=== PATIENT | male | born 1935 | race Caucasian/White ===

== ENCOUNTER → 2017-11-04 | Outpatient (CLI) | payer OTHER, MEDICARE | LOC: BHFA 08:30 | PROVIDERS: ATTEND Internal Medicine Cardiovascular Disease | DX: R06.02 Shortness of breath (principal); I10 Essential (primary) hypertension ==

== ENCOUNTER 2018-04-13 05:45 | Observation (INO) | payer OTHER, MEDICARE ==
--- NOTE | 2018-03-29 21:08 | GHP ---
[f rep st] PREOP HISTORY AND PHYSICAL DATE OF ADMISSION: 04/13/2018 He will be an a.m. admission for surgery at [facility] on Friday April 13, 2018. PROBLEMS: Left knee arthritis. HISTORY OF PRESENT ILLNESS: The patient is an 83-year-old man admitted for a left total knee arthrop lasty. He has had progressive trouble in his left knee for the past couple of years. He has receive d nonsurgical treatment at [facility]. He received viscosupplementation injections without improveme nt. He had 1 cortisone injection which helped for a few weeks. He had a 2nd injection, which did no t help at all. The knee has been aspirated several times. His pain is on the medial side of the kne e. He has pain going up and down stairs. He has had to give up cycling and hiking because of knee p ain. He is on Coumadin and is unable to take anti-inflammatory medications. He does not have any other total joints. He has recently had a complete cardiac evaluation by Dr. Vandana Patino and was cleared. PAST MEDICAL HISTORY: He is treated for hypertension. He has had a previous TUR for prostate enlarg ement. He has known factor 11 deficiency. He is followed by Dr. Oglesby. He is on chronic anticoag ulation. He also underwent ORIF of the right tibia with intramedullary nail in 1997. CURRENT MEDICATIONS: Amlodipine 10 mg per day for blood pressure. He uses gabapentin for sleep. Lo sartan 50 mg per day for blood pressure. Simvastatin 40 mg per day for cholesterol. Coumadin 5 mg 4 days a week and 2.5 mg 3 days a week. His most recent INR was 2.2. PAST SURGICAL HISTORY: He has had previous lumbar disk surgery. ALLERGIES: Drug allergy: None. Metal allergy: None. Latex allergy: None. SOCIAL HISTORY: The patient is . He is retired. He does not smoke cigarettes, but he occasi onally drinks alcohol. FAMILY HISTORY: Positive for heart disease and hypertension. PHYSICAL EXAMINATION: GENERAL: He is a tall healthy-appearing man. Height 6 feet. Weight 170 poun ds. BMI 23.1. EYES: He has had bilateral cataract surgery with lens implants. MOUTH: He has a co mplete upper denture. CHEST: Clear. HEART: Regular rhythm. No murmurs. EXTREMITIES: Pertinent findings limited to his left knee. He has full knee extension and 100 degrees of flexion. A small e ffusion is present. His ligaments are stable. Mild patellofemoral crepitation with active knee exte nsion. His patella is not tender with compression. He walks with a limp. IMAGING STUDIES: His films show medial compartment degenerative arthritis in the left knee. He has an intramedullary nail in the right. IMPRESSION ON ADMISSION: 1. Left knee medial compartment degenerative arthritis. He is prepared for a left total knee arthro plasty. 2. 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 3. Status post open reduction and internal fixation of the right tibia fracture. 4. Previous lumbar spine disk surgery. 5. Status post transurethral resection of the prostate for prostate enlargement. 6. Treatment for hypertension. PLAN: He will undergo a left total knee arthroplasty. The surgery has been described to him and to his , including the risks, complications, expectations, and recovery time. I have advised him th at 15% of people do not get a satisfactory result with a total knee replacement. He is chronically a nticoagulated for factor 11 deficiency. He will receive bridge therapy with Lovenox for 5 days prior to surgery. I have stressed the importance of postoperative physical therapy. All his questions have been answer ed, and he consents to surgery. /[id number]/MODL
[2018-04-13] MEDS ORDERED: TRANEXAMIC ACID 3,000 MG in NS (SYRINGE) 50 ML IRR ONE (06:00)
[2018-04-13] MEDS ORDERED: POVIDONE-IODINE 20 ML in SODIUM CL IRRIG SOLUTION 500 ML IRR ONE (06:00)
[2018-04-13] MEDS ORDERED: ROPIVACAINE 0.2% 80 MG, EPINEPHrine 0.2 MG, KETOROLAC TROMETHAMINE 30 MG in SYRINGE 0 ML IU ONE (06:00)
[2018-04-13] MEDS ORDERED: TRANEXAMIC ACID 1,000 MG in NS (SYRINGE) 50 ML IV ONE (06:00)
[2018-04-13] MEDS ORDERED: ACETAMINOPHEN 325 MG TAB PO ONE ×2 (06:17→09:32)
[2018-04-13] MEDS ORDERED: FAMOTIDINE 20 MG TAB PO ONE ×2 (06:17→09:32)
[2018-04-13] MEDS ORDERED: GABAPENTIN 300 MG CAP PO ONE (06:17)
[2018-04-13] MEDS ORDERED: DEXAMETHASONE 4 MG/ML VIAL IVP ONE ×2 (06:17→09:32)
[2018-04-13] MEDS ORDERED: ceFAZolin 2 GM/SWFI 2 GM/20 ML SYR IVP ONE ×2 (06:17→09:32)
[2018-04-13] MEDS ORDERED: ONDANSETRON 4 MG/2 ML VIAL IVP ONE (06:17)
[2018-04-13] MEDS ORDERED: LIDOCAINE 1% 2 ML INJ ID PRN (06:18)
[2018-04-13] MEDS ORDERED: LR 1,000 ML IV ONE (06:18)
[2018-04-13] MEDS ORDERED: LIDOCAINE 1% 2 ML INJ ONE (06:22)
[2018-04-13] MEDS ORDERED: VANCOMYCIN 1 GM VIAL ONE (06:32)
[2018-04-13] MEDS ORDERED: ceFAZolin 1 GM/5 ML SYR ONE (06:33)
--- NOTE | 2018-04-13 07:05 | PDHPUP ---
History & Physical Update H&P update statement: This history and physical update is based on an assessment of the patient which was completed after admission or registration (within 24 hours), but prior to the surgery/procedure. H&P update: H&P reviewed & patient examined
--- NOTE | 2018-04-13 07:11 | PDANEPAE ---
ANE Past Medical History - Cardiovascular History Hx Hypertension: Yes Hx Arrhythmias: No Hx Chest Pain: No Hx Coronary Artery / Peripheral Vascular Disease: No Hx CHF / Valvular Disease: No Hx Palpitations: No - Pulmonary History Hx COPD: No Hx Asthma/Reactive Airway Disease: No Hx Recent Upper Respiratory Infection: No Hx Oxygen in Use at Home: No Hx Sleep Apnea: No Sleep Apnea Screening Result - Last Documented: Positive - Neurologic History Hx Cerebrovascular Accident: No Hx Seizures: No Hx Dementia: No - Endocrine History Hx Diabetes: No - Renal History Hx Renal Disorders: Yes Renal History Comment: increased BUN/CREAT - Liver History Hx Hepatic Disorders: No - Neurological & Psychiatric Hx Hx Neurological and Psychiatric Disorders: No - Cancer History Hx Cancer: No - Congenital Disorder History Hx Congenital Disorders: Yes Congenital History Comment: FACTOR X1 DEFICIENCY - GI History Hx Gastrointestinal Disorders: No - Other Health History Other Health History: dentures upper - Chronic Pain History Chronic Pain: Yes (back) - Surgical History Prior Surgeries: none ANE Review of Systems Review of Systems: - Exercise capacity METS (RN): 5 METS ANE Patient History - Allergies Allergies/Adverse Reactions: No Known Allergies Allergy (Verified 03/25/18 12:39) - Home Medications Home Medications: Fluticasone Nasal [Flonase Nasal Cana (RX)] 1 sprays NASAL HS PRN 11/06/13 [ Last Taken Unknown] Vits A,C,E/Lutein/Minerals [Ocuvite Tablet] 2 tab PO DAILY 11/06/13 [Last Taken 11/06/13 07:00] Acetaminophen [Tylenol ES 500 mg (*)] 1,000 mg PO HS 03/23/18 [Last Taken Unknown] Carboxymethylcellulose 1% [Refresh Celluvisc (*)] 1 each OP PRN PRN 03/23/18 [ Last Taken Unknown] Gabapentin [Neurontin 300 MG (*)] 600 mg PO HS 03/23/18 [Last Taken Unknown] Losartan Potassium [Cozaar 50 mg (*)] 50 mg PO DAILY 03/23/18 [Last Taken Unknown] Simvastatin [Zocor] 20 mg PO DAILY 03/23/18 [Last Taken Unknown] Warfarin Sodium [Coumadin 5MG (*)] 5 mg PO SUMOTUSA 03/23/18 [Last Taken Unknown ] Warfarin Sodium [Warfarin Sodium] 2.5 mg PO WETHFR 03/23/18 [Last Taken Unknown] amLODIPine BESYLATE/BENAZEPRIL [Lotrel 5/10 mg Cap (*)] 1 each PO DAILY [Last Taken Unknown] - Smoking Hx Smoking Status: Former smoker - Family Anes Hx Family Hx Anesthesia Complications: none ANE Labs/Vital Signs - Vital Signs Height: 182.88 cm Weight: 83.915 kg ANE Physical Exam - Airway Neck exam: FROM Mallampati Score: Class 2 Mouth exam: normal dental/mouth exam - Pulmonary Pulmonary: no respiratory distress - Cardiovascular Cardiovascular: regular rate and rhythym - ASA Status ASA Status: III ANE Anesthesia Plan Anesthesia Plan: spinal Regional Anesthesia: adductor canal FNB
[2018-04-13 07:17] LABS: INR 1.06 (0.83-1.16)
[2018-04-13] MEDS ORDERED: PROPOFOL/EMULSION 500 MG/50 ML BOTTLE IV ONE (07:25)
[2018-04-13] MEDS ORDERED: LIDOCAINE 2% 100 MG/5 ML SYR ONE (07:27)
[2018-04-13] MEDS ORDERED: ROPIVACAINE HCL 150 MG/30 ML INJ ONE (09:07)
--- NOTE | 2018-04-13 09:14 | POSTOPPROG ---
Post Op Note Date of Operation: 04/13/18 Surgeon: Malcolm Carreno Argon Tester: Nilson Anesthesiologist: Dr. Willam Kenny Anesthesia: IV Sedation, Spinal Post-op Diagnosis: Left knee severe degenerative arthritis Procedure: Left total knee arthroplasty Inf/Abcess present in the surg proc area at time of surgery?: No EBL: 50-100 (Adductor canal block in PACU.)
[2018-04-13] MEDS ORDERED: CARBOXYMETHYLCELLULOSE 1% 0.4 ML DROPERETTE OP PRN (09:28)
[2018-04-13] MEDS ORDERED: FLUTICASONE NASAL 120 SPRAYS/16 GM MDI EACHNARE PRN (09:28)
[2018-04-13] MEDS ORDERED: PROMETHAZINE HCL 25 MG/ML INJ IVP PRN (09:34)
[2018-04-13] MEDS ORDERED: MAGNESIUM HYDROXIDE 30 ML UDCUP PO PRN (09:34)
[2018-04-13] MEDS ORDERED: ONDANSETRON 4 MG/2 ML VIAL IVP PRN (09:34)
[2018-04-13] MEDS ORDERED: POLYETHYLENE GLYCOL 3350 17 GM PKT PO PRN (09:34)
[2018-04-13] MEDS ORDERED: BISACODYL 10 MG SUPP PR PRN (09:34)
[2018-04-13] MEDS ORDERED: NS 500 ML IV PRN (09:34)
[2018-04-13] MEDS ORDERED: oxyCODONE IR 5 MG TAB PO PRN (09:34)
[2018-04-13] MEDS ORDERED: LACTULOSE 20 GM/30 ML UDCUP PO PRN (09:34)
[2018-04-13] MEDS ORDERED: TEMAZEPAM 15 MG CAP PO PRN (09:34)
[2018-04-13] MEDS ORDERED: traMADol 50 MG TAB PO PRN (09:34)
[2018-04-13] MEDS ORDERED: PROMETHAZINE HCL 25 MG SUPPR PR PRN (09:34)
[2018-04-13] MEDS ORDERED: DIPHENOXYLATE/ATROPINE LOMOTIL 1 TAB PO PRN (09:34)
[2018-04-13] MEDS ORDERED: METOCLOPRAMIDE 10 MG/2 ML VIAL IVP PRN (09:34)
[2018-04-13] MEDS ORDERED: ONDANSETRON DISINTEGRATING 4 MG TAB PO PRN (09:34)
[2018-04-13] MEDS ORDERED: CYCLOBENZAPRINE 10 MG TAB PO PRN (09:34)
[2018-04-13] MEDS ORDERED: diphenhydrAMINE 25 MG CAP PO PRN (09:34)
[2018-04-13] MEDS ORDERED: LR 1,000 ML IV SCH (10:00)
--- NOTE | 2018-04-13 10:23 | GOP ---
[f rep st] OPERATIVE REPORT DATE OF OPERATION: 04/13/2018 SURGEON: Malcolm Carreno MD SUPERVISOR [employer]UNTEER SERVICES: Claudio Brewster and Rao Baron. ANESTHESIA: A combination of Marcaine, spinal, IV sedation, and adductor canal block. PREOPERATIVE DIAGNOSIS: Left knee severe degenerative arthritis with varus deformity. POSTOPERATIVE DIAGNOSIS: Left knee severe degenerative arthritis with varus deformity. PROCEDURE PERFORMED: 04/13/2018, a left total knee arthroplasty, cemented, Patino and Nephew Journey II, posterior stabilized. FINDINGS: DESCRIPTION OF PROCEDURE: The patient was given 2 g of IV Ancef preoperatively within 60 minutes of surgery. Because of his history of Factor XI deficiency and a previous chronic use of anticoagulatio n medication, I did not give him his preoperative IV tranexamic acid. He was placed on the operating room table and given spinal anesthesia with Marcaine by Dr. Kenny. He was then placed supine and given IV sedation. A Rivero catheter was not used. He wore a RANJANA stocking and SCD on the nonoperati ve leg. His left lower extremity was prepped with ChloraPrep from the upper thigh tourniquet to the tips of the toes. It was draped free using sterile sheets, stockinette, and Ioban plastic adhesive d rape. The lower leg was wrapped with compressive Coban. The leg was exsanguinated with elevation an d a 6-inch compressive wrap, and the pneumatic tourniquet was elevated to 250 mmHg. The World Health Organization time-out was performed to verify the correct patient identity and the c orrect surgical side and site. The [place] time-out was also performed. The ScreenTagayo leg holding device was sterilely attached to the operating room table and used throughout the procedure to help position the knee. A straight midline incision was made centered on the patell a. Subcutaneous tissues were sharply divided and hemostasis was obtained using electrocautery. A me dial subcutaneous flap was developed, and the capsule and synovium were opened in a medial parapatell ar fashion. Extensive degenerative changes were present, particularly in the patellofemoral joint wh ere it was eroded down to subchondral bone. The medial capsule and periosteum were elevated off the rim of the medial tibial plateau around to the posteromedial corner. His medial collateral ligament was only lightly released. Because of his history of Factor XI deficiency and previous anticoagulati on, I was very careful with hemostasis at each stage of the procedure. In order to improve exposure, his patella was prepared first. The original thickness of the patella was measured. Peripheral osteophytes were removed. I cut a flat surface on the back of the patella. It was sized for a 41 mm round resurfacing patellar component. I removed enough bone from the weiss lla such that the remaining bone plus the thickness of the patellar component recreated the original thickness of the patella. The composite thickness was 25 mm. The intramedullary guide system was used to set up the distal femoral cut. The distal femur was cut in 5 degrees of valgus. He had full extension preoperatively and I did not make a +2 mm cut on the d istal femur. The sizing jig was used to determine proper femoral sizing. He was a true size 7 witho ut an anterior shift. The 5 in 1 cutting block was applied, and the anterior and posterior condylar cuts and chamfer cuts were made. The final jig was used to remove the central portion of the distal femur to accommodate the posterior stabilized femoral component. I was careful to determine proper r otation by referencing off Jerrica's line and other bony landmarks. Each cut was checked for accur acy before and after it was made. The femur was sized for a size 7 posterior stabilized component. Next, the tibia was prepared. The proximal tibial cut was made using the extramedullary alignment gu smitha system. The cut was made in a few degrees of posterior slope. I was careful to achieve proper v arus valgus alignment and proper rotation. The posterior compartment was cleared of meniscal remnant s. Osteophytes were removed from the back of the femoral condyles. I checked the flexion and extens ion gaps, and they were equal, balanced and rectangular. The tibia was sized for a size 7 component. With the trial components in place, I selected a 10 mm polyethylene posterior stabilized tibial ins ert. The knee came to full extension and flexed to 130 degrees. There was no overstuffing in flexio n. The collateral ligaments were stable and balanced in 90 degrees of flexion and full extension. T he trial patellar button was applied and tracking was checked. He had a little tendency for tilting of the patella. I did a very light lateral release. After that, tracking was excellent. 40 mL of the joint anesthetic cocktail were injected into the posterior capsule, the periarticular st ructures, the quadriceps muscle and tendon areas, and the subcutaneous tissues along the skin edges. The surfaces were prepared for cementing. They were carefully cleaned with the pulsating lavage and thoroughly dried. A CarboJet device was used to blow dry the cancellous surfaces. He had a 1 cm cys t on the posterior aspect of the prepared tibial surface. This was curetted down to healthy bone. A double batch of high viscosity methylmethacrylate cement with 2 g of powdered vancomycin added was m ixed. While it was still in a doughy state, all 3 components were cemented in place. Excess cement was removed before it hardened. The cyst on the tibia was filled with cement. The 10 mm trial tibial insert was re-tried and was the proper thickness. The actual component was in serted and locked into place. The knee was thoroughly irrigated one final time with a dilute Betadin e solution. The tourniquet was deflated and the total tourniquet time was 57 minutes. I applied topical tranexam ic acid to the wound. The wound was packed with a lap sponge and then wrapped with a 6-inch Bar band age and left for 2 or 3 minutes. The vastus medialis portion of the extensor mechanism was repaired with several interrupted figure-of -eight #2 FiberWire sutures. The capsule and synovium were closed first with multiple interrupted fi [id number] 0 PDS sutures, followed by a running #2 barbed Ethicon Stratafix PDO suture. Subcutane ous tissues were closed with a running 0 barbed Ethicon Stratafix Monoderm suture. The skin was clos ed with a running 3-0 barbed Ethicon Stratafix Monoderm subcuticular suture. The skin was sealed wit h half-inch Steri-Strips. The wound was covered with a large Mepilex waterproof dressing and a 6-inc h compressive wrap. A long-leg RANJANA stocking and SCD were applied followed by the cooling device. The Mepilex sacral dressing was also applied. I used a size 7 cemented Patino and Nephew Oxinium posterior stabilized femoral component, a size 7 ce mented tibial baseplate, a 10 mm posterior stabilized tibial insert and a 41 mm cemented round all-po lyethylene resurfacing patellar component. The estimated blood loss following deflation of the tourniquet was about 100 cc. Bleeding was well c ontrolled at the conclusion of the procedure. The sponge and needle count were correct on 2 occasion s. He was awakened from anesthesia, transferred to his hospital [facility] and taken to PACU in satisfactory condition. There were no recognized intraoperative complications. In the PACU, for additional post operative pain control, Dr. Kenny performed an adductor canal block with an indwelling catheter. Claudio Brewster and Rao Baron acted as surgical assistants. Their assistance was a medical necess ity for safe completion of the operation. /[id number]/MODL
--- NOTE | 2018-04-13 10:52 | POSTANESTH ---
Post Anesthetic Evaluation Cardiovascular Status: Similar to Pre-Op Cond Respiratory Status: Similar to Pre-op Cond. Level of Consciousness/Mental Status: Mildly Sleepy, Arousable Pain Control: Adequate, Prn Tx Ordered Nausea/Vomiting Control: Adequate, Prn Tx Ordered Complications Possibly Related to Anesthesia: None Noted (adductor canal catheter/block in RR. Will re-dose in AM)
[2018-04-13] MEDS: ACETAMINOPHEN 325 MG TAB PO SCH ×3 (12:05→23:49)
[2018-04-13] MEDS: KETOROLAC 15 MG/1 ML SDV IVP SCH ×3 (12:05→23:49)
[2018-04-13] MEDS: ceFAZolin 2 GM/DEXTROSE 100 ML IV SCH ×2 (15:33→21:42)
[2018-04-13] MEDS ORDERED: WARFARIN SODIUM 5 MG TAB PO SCH (16:00)
[2018-04-13] MEDS: PRESERVISION AREDS2 FORMULA EYE VIT 1 EACH PO SCH (18:15)
[2018-04-13] MEDS: CARBOXYMETHYLCELLULOSE 0.5% 0.4 ML DROPERETTE EACHEYE PRN (18:15)
[2018-04-13] MEDS ORDERED: GABAPENTIN 300 MG CAP PO SCH (21:00)
[2018-04-13] MEDS: FAMOTIDINE 20 MG TAB PO SCH (21:40)
[2018-04-13] MEDS: SENNOSIDES/DOCUSATE SODIUM TAB PO SCH (21:41)
[2018-04-14 05:32] LABS: INR 1.15 (0.83-1.16); PROTIME(PATIENT) 14.9 SEC (12.0-15.0)
[2018-04-14] MEDS: ACETAMINOPHEN 325 MG TAB PO SCH (05:37)
[2018-04-14] MEDS: KETOROLAC 15 MG/1 ML SDV IVP SCH (05:38)
[2018-04-14] MEDS: CARBOXYMETHYLCELLULOSE 0.5% 0.4 ML DROPERETTE EACHEYE PRN (05:40)
[2018-04-14] MEDS ORDERED: ROPIVACAINE HCL 150 MG/30 ML INJ ONE (07:24)
--- NOTE | 2018-04-14 07:45 | SOAPPROG ---
SOAP Progress Note Assessment/Plan: Assessment: Good pain management Plan:Adductor Canal catheter injected with Ropivacaine 0.5 % 15 ml divided doses. VS stable. Multiple negative aspirations. Patient tolerated procedure well. 04/14/18 07:43 Objective: Vital Signs Temp Pulse Resp BP Pulse Ox 36.8 C 54 L 16 119/76 95 04/14/18 04:00 04/14/18 04:00 04/14/18 04:00 04/14/18 04:00 04/14/18 04:00 Laboratory Results 04/14/18 05:13 04/14/18 05:13 04/13/18 04/14/18 04/15/18 05:59 05:59 05:59 Intake Total 2495 Output Total 1200 Balance 1295 PT 14.9 SEC (12.0-15.0) 04/14/18 05:13 INR 1.15 (0.83-1.16) 04/14/18 05:13 ICD10 Worksheet Patient Problems: Problems Problem Status Onset Osteoarthritis of left knee Acute Factor XI deficiency Acute Transverse sinus thrombosis Acute
[2018-04-14 08:04] VITALS: BP 122/66
[2018-04-14] MEDS: PRESERVISION AREDS2 FORMULA EYE VIT 1 EACH PO SCH (08:12)
[2018-04-14] MEDS: SENNOSIDES/DOCUSATE SODIUM TAB PO SCH (08:12)
[2018-04-14] MEDS: FAMOTIDINE 20 MG TAB PO SCH (08:13)
[2018-04-14] MEDS ORDERED: ENOXAPARIN 40 MG/0.4 ML SYR SC SCH (09:00)
[2018-04-14] MEDS ORDERED: FERROUS SULFATE 140 MG TAB.ER PO SCH (09:00)
[2018-04-14] MEDS ORDERED: ATORVASTATIN CALCIUM 10 MG TAB PO SCH (09:00)
[2018-04-14] MEDS ORDERED: AMLODIPINE BESYLATE 5/BENAZEPRIL 10MG 1 EACH CAP PO SCH (09:00)
[2018-04-14] MEDS ORDERED: LOSARTAN POTASSIUM 50 MG TAB PO SCH (09:00)
--- NOTE | 2018-04-14 09:47 | SOAPPROG ---
SOAP Progress Note Assessment/Plan: Assessment: Afebrile. Up and walking in ladd. Mild pain so far. Had another dose of marcaine this morning in ACB catheter. H/H is good. Films look good. Dsg is dry. Plan:DC today. He will go to out patient PT in [place] next week. Call for problems. 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
--- NOTE | 2018-04-14 10:14 | GDS ---
[f rep st] DISCHARGE SUMMARY ADMISSION DIAGNOSIS: Left knee severe arthritis. DISCHARGE DIAGNOSIS: Left knee severe arthritis. PROCEDURE PERFORMED: 04/13/2018, a left total knee arthroplasty. POSTOPERATIVE COMPLICATIONS: None. CONDITION ON DISCHARGE: Improved. DESCRIPTION OF HOSPITAL COURSE: The patient was admitted to the hospital on the morning of surgery. His admission CBC and electrolytes were normal. His admission BUN and creatinine were 31 and 1.4. The same day, under a combination of Marcaine, spinal, IV sedation, and adductor canal block he under went a left total knee arthroplasty. The patient has a history of thromboembolic disease. He was on Coumadin preoperatively. Postoperatively, he was placed on bridge therapy with Lovenox and was star ranjana back on Coumadin. On the first postoperative day his hemoglobin and hematocrit were 11.2 and 32. 9. BUN and creatinine were 25 and 1.0. He was seen by Physical Therapy and made good progress with ambulation and stairs. By the time of discharge, he was afebrile, his dressing was dry, and he was i ndependent walking. He had approximately 90 degrees of knee flexion. DISPOSITION: The patient is discharged to his home. He has physical therapist here in [facility] start physical therapy the beginning of next week. He may progress to full weightbearing as tole rated. He will take 5 mg of Coumadin a day for the next 3 or 4 days. He will check his INR at home. Once his INR is between 2 and 3 he can discontinue the Lovenox. Continue RANJANA stockings for 1 week. He may progress to full weightbearing as tolerated. I will see him back in the office on 8. If there any problems, he is to call me at the office. Copy requested to: Jace Gillespie MD /[id number]/MODL
--- NOTE | 2018-04-14 12:09 | ASMTCMCOM ---
CM Note CM Note Notes: Pt medically stable for d/c, pt to follow up with outpatient PT next week per MD rec. No CM d/c needs identified. Date Signed: 04/14/2018 12:08 PM Electronically Signed By:JOHN Smith
== END 2018-04-14 11:40 | disposition home or self-care (01) ==
LOC: F3N 05:45
PROVIDERS: ADMIT Orthopaedic Surgery; ATTEND Orthopaedic Surgery
PROC: 0SRD069 Replacement of Left Knee Joint with Oxidized Zirconium on Polyethylene Synthetic Substitute, Cemented, Open Approach (ICD-10-PCS; principal; 2018-04-13 07:15)
DX: M17.12 Unilateral primary osteoarthritis, left knee (principal); D68.1 Hereditary factor XI deficiency; I10 Essential (primary) hypertension; Z86.718 Personal history of other venous thrombosis and embolism; Z79.01 Long term (current) use of anticoagulants; Z87.891 Personal history of nicotine dependence
CPT/HCPCS: 27447; 73560; 77073; 88311; 97116; 97161; 97165; 97530; C1713; C1776; G8978; G8979; G8980; G8987; G8988; G8989; J0171; J0690; J1100; J1650; J1885; J2001; J2405; J2704; J2795; J3370